=== PATIENT | female | born 1960 | race Two or more races ===

== ENCOUNTER 2022-08-19 16:12 | Emergency (ER) | payer OTHER ==
[~2022-08-19] VITALS: Ht 170.2 cm; Wt 78.5 kg
[2022-08-19] MEDS ORDERED: HUMALOG100 UNIT/2 SQ (16:28)
[2022-08-19] MEDS ORDERED: SYNTHROID75 MCG PO (16:29)
[2022-08-19] MEDS ORDERED: LANTUS SOL100 UNIT/1 SQ (16:29)
== END 2022-08-19 19:23 | disposition home or self-care (01) ==
LOC: ER 16:12
DX: G44.89 Other headache syndrome (principal); H53.8 Other visual disturbances; E13.69 Other specified diabetes mellitus with other specified complication; Z88.0 Allergy status to penicillin; Z88.2 Allergy status to sulfonamides